=== PATIENT | female | born 1990 | race Caucasian/White ===

== ENCOUNTER 2023-02-24 08:59 | Emergency (ER) | payer SELFPAY ==
[~2023-02-24] VITALS: Ht 160 cm; Wt 63.0 kg
[2023-02-24 09:01] VITALS: BP 118/75; PULSE 84; RESP 16; TEMP 98; O2SAT 100
== END 2023-02-24 10:04 | disposition left against medical advice (07) ==
LOC: ER 09:23
DX: R55 Syncope and collapse (principal); R11.0 Nausea
CPT/HCPCS: 99283